=== PATIENT | male | born 1975 | race Hispanic/Latino ===

== ENCOUNTER 2024-01-25 00:11 | Emergency (ER) | payer OTHER ==
[~2024-01-25] VITALS: Ht 177.8 cm; Wt 118.4 kg
[2024-01-25] MEDS ORDERED: IBUP-2077 PO (00:26)
[2024-01-25] MEDS: KETOROLAC 15MG/ML VIAL (15MG/ML) IM STA (00:31)
[2024-01-25 00:47] VITALS: BP 138/83; PULSE 87; RESP 18; O2SAT 98
== END 2024-01-25 00:48 | disposition home or self-care (01) ==
LOC: EDH 00:11
DX: K02.9 Dental caries, unspecified (principal); I10 Essential (primary) hypertension; E11.9 Type 2 diabetes mellitus without complications; Z98.890 Other specified postprocedural states
CPT/HCPCS: 99283; 96372; J1885

== ENCOUNTER 2024-02-25 17:55 | Emergency (ER) | payer OTHER ==
[~2024-02-25] VITALS: Ht 177.8 cm; Wt 108.9 kg
[~2024-02-25 17:55] MED LIST: ACET-2079 PO; AEC81 PO; ATOR40TA69 PO; BACL10TA PO; CARB200T6 PO; IBUP-2077 PO; LEVO750T39 PO; LISI20TA24 PO; METF-446 PO
[2024-02-25 18:39] LABS: BASOPHILS # (AUTO) 0.07 K/uL (0.00-0.20); BASOPHILS % (AUTO) 1.2 % (0.0-5.0); EOSINOPHILS # (AUTO) 0.06 K/uL (0.00-0.70); EOSINOPHILS % (AUTO) 1.1 % (0.0-8.0); HEMATOCRIT 40.7 % (42-54); IMMATURE GRANULOCYTE ABSOLUTE 0.02 K/uL (0-1); LYMPHOCYTES # (AUTO) 1.7 K/uL (1.0-4.8); LYMPHOCYTES % (AUTO) 30.4 % (21.0-51.0); MEAN CORPUSCULAR HEMOGLOBIN 26.6 pg (27.0-33.0); MEAN CORPUSCULAR HGB CONC 32.2 g/dL (32.0-36.0); MEAN CORPUSCULAR VOLUME 82.7 fL (79-99); MONOCYTES # (AUTO) 0.5 K/uL (0.1-1.0); NEUTROPHILS # (AUTO) 3.3 K/uL (1.8-7.7); NEUTROPHILS % (AUTO) 58.9 % (40.0-77.0); PLATELET COUNT (AUTO) 353 K/uL (130-400); RED BLOOD CELL COUNT(AUTO) 4.92 MIL/uL (4.50-6.20); RED CELL DISTRIBUTION WIDTH 13.4 % (11.0-15.5); WHITE BLOOD COUNT (AUTO) 5.7 K/uL (4.8-10.8)
[2024-02-25 18:49] LABS: CREATININE 1.1 mg/dL (0.5-1.3)
[2024-02-25] MEDS: 0.9%NACL 1000ML 1,000 ML IV ONE (18:51)
[2024-02-25 18:58] LABS: ALBUMIN 3.5 g/dL (3.5-5.0); BILIRUBIN,TOTAL 0.3 mg/dL (0.2-1.0); MAGNESIUM 1.8 mg/dL (1.80-2.40); TOTAL PROTEIN, SERUM 7.2 g/dL (6.0-8.3)
[2024-02-25 19:01] LABS: B-TYPE NATRIURETIC PEPTIDE < 5 pg/mL (0-100)
[2024-02-25] MEDS: ONDANSETRON 4MG INJ IVP ONE (19:12)
[2024-02-25] MEDS: MORPHINE 4 MG SYG IVP ONE (19:12)
[2024-02-25] MEDS: INSULIN HUMULIN R 100 UNIT/ML 3ML IV ONE (19:15)
[2024-02-25 20:20] VITALS: BP 121/63; PULSE 82; RESP 18; O2SAT 99
== END 2024-02-25 20:50 | disposition home or self-care (01) ==
LOC: EDH 17:55
DX: G50.0 Trigeminal neuralgia (principal); R51.9 Headache, unspecified; R11.2 Nausea with vomiting, unspecified; E11.65 Type 2 diabetes mellitus with hyperglycemia; E86.0 Dehydration; I10 Essential (primary) hypertension; Z79.82 Long term (current) use of aspirin; Z79.899 Other long term (current) drug therapy; Z98.890 Other specified postprocedural states
CPT/HCPCS: 99285; 96374; 70450; 96375; 71045; 96361; 82550; 83735; 84484; 80053; 83880; 85025; 82948; 82010; 36415; 93005; J1815; J7030; J2405; J2270

== ENCOUNTER 2024-03-01 18:05 | Emergency (ER) | payer OTHER ==
[~2024-03-01] VITALS: Ht 177.8 cm; Wt 111.6 kg
[2024-03-01] MEDS: CYCLOBENZAPRINE HCL 10 MG TABLET PO ONE (18:41)
[2024-03-01] MEDS: 0.9%NACL 1000ML 1,000 ML IV ONE (18:41)
[2024-03-01] MEDS: ONDANSETRON 4MG INJ IVP ONE (18:42)
[2024-03-01] MEDS: METOCLOPRAMIDE 10 MG/2 ML VIAL IVP ONE (18:42)
[2024-03-01] MEDS: KETOROLAC 30MG VIAL (30MG/ML) IVP ONE (18:42)
[2024-03-01] MEDS: SOLU-MEDROL 125MG VIAL IVP ONE (18:42)
[2024-03-01 19:42] VITALS: BP 142/87; PULSE 92; RESP 20; O2SAT 98
[2024-03-01] MEDS ORDERED: BUTA-271 PO (19:46)
== END 2024-03-01 20:22 | disposition home or self-care (01) ==
LOC: EDH 18:05
DX: G44.209 Tension-type headache, unspecified, not intractable (principal); E11.9 Type 2 diabetes mellitus without complications; E78.00 Pure hypercholesterolemia, unspecified; I10 Essential (primary) hypertension; Z79.82 Long term (current) use of aspirin; Z79.84 Long term (current) use of oral hypoglycemic drugs; Z79.899 Other long term (current) drug therapy; Z95.1 Presence of aortocoronary bypass graft
CPT/HCPCS: 99284; 96374; 96375; 96361; J7030; J2919; J2405; J1885; J2765

== ENCOUNTER 2025-05-13 20:12 | Emergency (ER) | payer SELFPAY ==
[~2025-05-13] VITALS: Ht 157.5 cm; Wt 108.9 kg
[~2025-05-13 20:12] MED LIST changes: +BUTA-271 PO; +CARB-225 PO; -CARB200T6 PO; -LEVO750T39 PO; +LEVO750T90 PO
[2025-05-13 20:30] VITALS: BP 149/72; PULSE 100; RESP 20; TEMP 98.6; O2SAT 97
[2025-05-13 21:14] LABS: IMMATURE GRANULOCYTE ABSOLUTE 0.05 K/uL (0-1); NUCLEATED RED BLOOD CELLS 0.0 % (0.0-0.19); PLATELET COUNT (AUTO) 453 K/uL (130-400); RED BLOOD CELL COUNT(AUTO) 4.43 MIL/uL (4.50-6.20); RED CELL DISTRIBUTION WIDTH 13.2 % (11.0-15.5); WHITE BLOOD COUNT (AUTO) 9.4 K/uL (4.8-10.8)
[2025-05-13] MEDS: ORPHENADRINE 60MG/2ML IVP ONE (21:16)
[2025-05-13] MEDS: LACTATED RINGERS 1000ML IV STA ×2 (21:16→23:35)
[2025-05-13] MEDS: TRIAMCINOLONE ACETONIDE 40 MG/ML 1ML VIAL IM ONE (21:16)
[2025-05-13 21:32] LABS: CREATININE 0.7 mg/dL (0.5-1.3); GLOMERULAR FILTR. RATE CALC 114 mL/min (>90); GLUCOSE,RANDOM 178 mg/dL (70-105); SODIUM SERUM 142 mmol/L (136-145); UREA NITROGEN, BLOOD 19 mg/dL (7-18)
[2025-05-13 21:37] LABS: ASPARTATE AMINOTRANSFERASE 15 U/L (10-37); TOTAL PROTEIN, SERUM 7.0 g/dL (6.0-8.3)
[2025-05-13] MEDS: amLODIPine 5 MG TAB PO ONE (23:35)
--- NOTE | 2025-05-13 23:59 | ERN ---
General Chief Complaint: Headache Stated Complaint: HEADACHE, DIZZINESS Time Seen by MD: 20:36 Source: patient, family History of Present Illness Initial Comments 49-year-old male with a history of hypercholesterolemia hypertension and diabetes as well as a CABG comes in with a severe headache dizziness and right- sided face pain. He has been given gabapentin in the past because of a possible diagnosis of tic douloureux. He has an appointment with his doctor in the morning but he comes in today because the pain is just too bad. Allergies: Coded Allergies: No Known Allergies (Unverified Allergy, Unknown, 01/25/24) Home Meds Active Scripts Butalb/Acetaminophen/Caffeine (Esgic 50-325-40 mg Tablet) 50 Mg-325 Mg-40 Mg Tablet, 2 EACH PO Q4PRN for HEADACHE, #30 TAB TWO TABLETS BY MOUTH EVERY4 HOURS P.R.N. HEADACHE, MAXIMUM SIX TABLETS IN 24 HOURS. Prov:LOUISE KAUR INNER DIAMETER GRINDER TOOL 03/01/24 Levofloxacin (Levofloxacin) 750 Mg Tablet, 750 MG PO DAILY, #10 TAB Prov:ALFREDO FRAGA NETWORKING TECHNOLOGY INSTRUCTOR 02/11/24 Ibuprofen (Ibuprofen 800 mg Tab) 800 Mg Tab, 800 MG PO Q6H PRN for PAIN, #30 TAB Prov:WANDA GARCIA I PA 01/25/24 Reported Medications Carbamazepine (Carbamazepine) 200 Mg Tablet, 2 TAB PO BID 02/08/24 Acetaminophen with Codeine (Acetaminophen-Cod #3 Tablet) 300 Mg-30 Mg Tablet, 1 TAB PO BID PRN for pain 02/08/24 Baclofen (Baclofen) 10 Mg Tablet, 10 MG PO BID, TAB 02/07/24 Atorvastatin Calcium (LIPITOR) 40 Mg Tablet, 40 MG PO DAILY, TAB 02/07/24 Lisinopril (Lisinopril) 20 Mg Tablet, 20 MG PO DAILY, TAB 02/07/24 Aspirin (ASPIRIN 81 MG ECTAB) 81 Mg Ectab, 81 MG PO DAILY, TAB.EC 02/07/24 Metformin HCl (Metformin HCl) 1,000 Mg Tablet, 1000 MG PO BID, TAB 02/07/24 Past Medical History Past Medical History: Diabetes-Type II, High Cholesterol, Hypertension, [place], Migraines Medical History Other: SLEEP APNEA, TRIGEMINAL NEURALGIA Past Surgical History: CABG, Other Surgical History Other: DOUBLE BYPASS SURGERY Social History Social History: Drugs Constitutional: (-) chills, (-) diaphoresis, (-) fever, (-) malaise, (-) weakness, (-) other documentation EENTM: (-) eye pain, (-) blurred vision, (-) tearing, (-) double vision, (-) ear pain, (-) ear discharge, (-) nose pain, (-) nose congestion, (-) throat pain, (-) Throat swelling, (-) mouth pain, (-) tooth pain, (-) mouth swelling, (-) other documentation Respiratory: (-) cough, (-) orthopnea, (-) short of breath, (-) stridor, (-) wheezing, (-) other documentation Cardiovascular: (-) chest pain, (-) edema, (-) palpitations, (-) syncope, (-) dyspnea on exertion, (-) other documentation Gastrointestinal/Abdominal: (-) nausea, (-) vomiting, (-) diarrhea, (-) abdominal pain, (-) abdominal distention, (-) constipation, (-) rectal bleeding, (-) dark stool/melena, (-) other documentation Musculoskeletal: (+) Neck pain Neuro: (+) headache, (+) dizziness Physical Exam General Appearance: (+) moderate distress Orientation: (+) alert, (+) oriented x 3 Head/Face Trauma: No Eye: bilateral eye normal inspection, bilateral eye PERRL, bilateral eye EOMI Ear, Nose, Throat: (+) hearing grossly normal, (+) normal ENT inspection, (+) moist mucous membraine Neck: (+) normal inspection, (+) supple, (+) full range of motion, (+) no JVD Respiratory: (+) chest non-tender, (+) lungs clear, (+) well ventilated Heart: (+) regular, (+) no gallop, (+) tachycardia Vascular: (+) no edema, (+) normal peripheral pulse Gastrointestinal: (+) soft, (+) non-tender, (+) bowel sound present Results Laboratory and Microbiology Lab and Micro Result Laboratory Tests Test 05/13/25 20:51 White Blood Count 9.4 K/uL (4.8-10.8) Red Blood Count 4.43 MIL/uL (4.50-6.20) L Hemoglobin 12.6 g/dL (14.0-18.0) L Hematocrit 39.6 % (42-54) L Mean Corpuscular Volume 89.4 fL (79-99) Mean Corpuscular Hemoglobin 28.4 pg (27.0-33.0) Mean Corpuscular Hemoglobin Concent 31.8 g/dL (32.0-36.0) L Red Cell Distribution Width 13.2 % (11.0-15.5) Platelet Count 453 K/uL (130-400) H Mean Platelet Volume 9.2 fL (7.5-10.5) Immature Granulocyte % (Auto) 0.5 % (0-1) Neutrophils (%) (Auto) 61.8 % (40.0-77.0) Lymphocytes (%) (Auto) 25.8 % (21.0-51.0) Monocytes (%) (Auto) 7.4 % (3.0-13.0) Eosinophils (%) (Auto) 3.8 % (0.0-8.0) Basophils (%) (Auto) 0.7 % (0.0-5.0) Neutrophils # (Auto) 5.8 K/uL (1.8-7.7) Lymphocytes # (Auto) 2.4 K/uL (1.0-4.8) Monocytes # (Auto) 0.7 K/uL (0.1-1.0) Eosinophils # (Auto) 0.36 K/uL (0.00-0.70) Basophils # (Auto) 0.07 K/uL (0.00-0.20) Absolute Immature Granulocyte (auto 0.05 K/uL (0-1) Nucleated Red Blood Cells 0.0 % (0.0-0.19) Sodium Level 142 mmol/L (136-145) Potassium Level 3.9 mmol/L (3.5-5.1) Chloride Level 104 mmol/L (101-111) Carbon Dioxide Level 30 mmol/L (21-32) Blood Urea Nitrogen 19 mg/dL (7-18) H Creatinine 0.7 mg/dL (0.5-1.3) Glomerular Filtration Rate Calc 114 mL/min (>90) Random Glucose 178 mg/dL (70-105) H Lactic Acid Level 1.4 mmol/L (0.8-2.5) Total Calcium 8.7 mg/dL (8.5-10.1) Total Bilirubin < 0.1 mg/dL (0.2-1.0) L Aspartate Amino Transf (AST/SGOT) 15 U/L (10-37) Alanine Aminotransferase (ALT/SGPT) 30 U/L (12-78) Alkaline Phosphatase 109 U/L (50-136) Troponin I High Sensitivity 5 ng/L (4-75) B-Type Natriuretic Peptide 9 pg/mL (0-100) Total Protein 7.0 g/dL (6.0-8.3) Albumin 3.2 g/dL (3.5-5.0) L MDM MDM: Differential diagnosis: Trigeminal neuralgia, dehydration, migraine, tension headache, hypertensive emergency, Rationale: Tests considered and ordered secondary to shared decision making include: Previous outside records reviewed: Old ER visits. Risk of complication and/or morbidity or mortality of patient management: None Medications-Per medication reconciliation Need for hospitalization: Patient does meet criteria for hospitalization. Need for emergency major/minor surgery: No There are no social concerns with this patient. Prescription drug management Prescriptions will include symptomatic care Patient's prior external medical records from other ER visits were reviewed by me as indicated. Prior testing and results from previous visits were reviewed. Prior tests were taken into account with medical decision making and resource utilization, independent historian/historians were used to obtain complete medical history. I independently interpreted the test that were performed, results were reviewed by me and considered findings on radiology if ordered. Patient's workup shows a mild anemia. Possible signs of dehydration with a an elevated BUN. I gave the patient 2 L of fluid, a muscle relaxant and also an oral dorsal Tegretol for his tic douloureux. Patient says he feels much better and would like to go home. ED Course Orders Procedure Category Date Status Time 12 Lead Ekg Tracing- EKG 05/13/25 Logged Technical 20:41 B-Type Natriuretic LAB 05/13/25 Complete Peptide 20:41 Comprehensive LAB 05/13/25 Complete Metabolic Panel 20:41 Cbc With Differential LAB 05/13/25 Complete 20:41 Lactic Acid LAB 05/13/25 Complete 20:41 Troponin I High LAB 05/13/25 Complete Sensitivity 20:41 Urinalysis Profile LAB 05/13/25 Logged 20:41 Lactated Ringers PHA 05/13/25 Complete 1000ml (Lactated 20:41 Orphenadrine Citrate PHA 05/13/25 Complete (Norflex) 21:00 Ketorolac PHA 05/13/25 Complete Tromethamine 30mg/Ml 21:00 Triamcinolone Acet PHA 05/13/25 Complete 40mg/Ml 1ml (Kenalog 21:00 Lactated Ringers PHA 05/13/25 Complete 1000ml (Lactated 23:11 Carbamazepine 200 Mg PHA 05/13/25 Complete (Carbamazepine 200 23:30 Amlodipine 5 Mg Tab PHA 05/13/25 Complete (Norvasc 5mg Tab) 23:30 Current Medications Medications (Trade) Dose Ordered Sig/Sergio Route PRN Reason Start Time Stop Time Status Last Admin Dose Admin Amlodipine Besylate (NorvASC 5MG TAB) 5 mg ONCE ONCE PO 05/13/25 23:30 05/13/25 23:31 DC 05/13/25 23:35 Carbamazepine (carBAMazepine 200 mg tablet) 200 mg ONCE ONCE PO 05/13/25 23:30 05/13/25 23:31 DC 05/13/25 23:35 Ketorolac Tromethamine (toRADol) 30 mg ONCE ONCE IVP 05/13/25 21:00 05/13/25 21:01 DC 05/13/25 21:16 Lactated Ringer's (Lactated Ringers 1000ml) 1,000 ml BOLUS STAT IV 05/13/25 20:41 05/13/25 20:44 DC 05/13/25 21:16 Lactated Ringer's (Lactated Ringers 1000ml) 1,000 ml BOLUS STAT IV 05/13/25 23:11 05/13/25 23:15 DC 05/13/25 23:35 Orphenadrine Citrate (Norflex) 60 mg ONCE ONCE IVP 05/13/25 21:00 05/13/25 21:01 DC 05/13/25 21:16 Triamcinolone Acetonide (Kenalog 40) 40 mg ONCE ONCE IM 05/13/25 21:00 05/13/25 21:01 DC 05/13/25 21:16 Vital Signs Date Time Temp Pulse Resp B/P (MAP) Pulse Ox O2 Delivery O2 Flow Rate FiO2 05/13/25 20:30 98.6 100 20 149/72 97 Room Air* 0 21 05/13/25 20:14 97.9 100 20 146/109 95 Room Air DX & DISP Disposition: Discharge Departure Impression: Primary Impression: Trigeminal neuralgia Additional Impression: Dehydration Condition: Stable Additional Instructions: You came in with a severe headache and hypertension. I treated you with fluids Tegretol and an antihypertensive medication. Your symptoms have abated please keep your appointment with your physician in the morning. You may have a trigeminal neuralgia and I have given you some Tegretol to help treat that. There was debate in the literature whether Tegretol or gabapentin is the best medication for trigeminal neuralgia. It depends on how you feel when you are taking each of those meds and their side effects. Referrals: ADRIA STARKEY (PCP) LEE PARRISH MD May 13, 2025 23:59
--- NOTE | 2025-05-14 06:25 | EKG ---
[facility] Test Date: 2025-05-13 Test Time: 20:57:06 Pat Name: ANDREW FULTON Department: ED Room: Gender: M Capacity Manager: [id number] : 1975 Requested By: LEE PARRISH Order Number: [id number] Reading MD: Beatrice Ochoa Measurements Intervals [place] Rate: 93 P: 15 VT: 188 QRS: 94 QRSD: 100 T: 64 QT: 360 QTc: 447 Interpretive Statements Sinus rhythm Inferior infarct, old Compared to ECG 02/25/2024 18:55:28 Myocardial infarct finding now present Right-axis deviation no longer present Electronically Signed On 05-15-2025 16:11:06 CDT by Beatrice Ochoa Please click the below link to view image of tracing.
== END 2025-05-14 00:52 | disposition home or self-care (01) ==
LOC: EDH 20:12
DX: G50.0 Trigeminal neuralgia (principal); E86.0 Dehydration; E11.9 Type 2 diabetes mellitus without complications; E78.00 Pure hypercholesterolemia, unspecified; G47.30 Sleep apnea, unspecified; I10 Essential (primary) hypertension; I25.2 Old myocardial infarction; Z79.82 Long term (current) use of aspirin; Z79.84 Long term (current) use of oral hypoglycemic drugs; Z79.899 Other long term (current) drug therapy; Z95.1 Presence of aortocoronary bypass graft
CPT/HCPCS: 99284; 96374; 96361; 96375; 84484; 80053; 83880; 85025; 83605; 36415; 93005; 96372; J1885; J7120 ×2; J3301; J2360

== ENCOUNTER 2025-08-07 18:04 | Emergency (ER) | payer SELFPAY ==
[~2025-08-07] VITALS: Ht 175.3 cm; Wt 117.9 kg
--- NOTE | 2025-08-07 18:09 | ERN ---
ED Note History of Present Illness Stated Complaint: FLULIKE SYMPTOMS Chief Complaint: Flu Symptoms Time Seen by MD: 18:06 Dictation: PATIENT IS A 50-YEAR-OLD MALE COMING IN TODAY WITH FLU-LIKE SYMPTOMS TO INCLUDE CLEAR RUNNY NOSE, SORE THROAT WITH PAINFUL SWALLOWING DRY COUGH AND BODY ACHES FOR THE LAST TWO DAYS. HE DENIES NAUSEA VOMITING LOSS OF TASTE OR SMELL. NO CHANGE IN URINATION. STATES HE JUST GOT IN TOWN FROM TRAVELING [facility] AND HAD NO KNOWN SICK ASSOCIATES. HAS BEEN TAKING NYQUIL [id number]. Allergies: Coded Allergies: No Known Allergies (Unverified Allergy, Unknown, 01/25/24) Home Meds Active Scripts Butalb/Acetaminophen/Caffeine (Esgic 50-325-40 mg Tablet) 50 Mg-325 Mg-40 Mg Tablet, 2 EACH PO Q4PRN for HEADACHE, #30 TAB TWO TABLETS BY MOUTH EVERY4 HOURS P.R.N. HEADACHE, MAXIMUM SIX TABLETS IN 24 HOURS. Prov:LOUISE KAUR YOUTH CAREER SPECIALIST 03/01/24 Levofloxacin (Levofloxacin) 750 Mg Tablet, 750 MG PO DAILY, #10 TAB Prov:ALFREDO FRAGA YOUTH CAREER SPECIALIST 02/11/24 Ibuprofen (Ibuprofen 800 mg Tab) 800 Mg Tab, 800 MG PO Q6H PRN for PAIN, #30 TAB Prov:WANDA GARCIA I PAC 01/25/24 Reported Medications Carbamazepine (Carbamazepine) 200 Mg Tablet, 2 TAB PO BID 02/08/24 Acetaminophen with Codeine (Acetaminophen-Cod #3 Tablet) 300 Mg-30 Mg Tablet, 1 TAB PO BID PRN for pain 02/08/24 Baclofen (Baclofen) 10 Mg Tablet, 10 MG PO BID, TAB 02/07/24 Atorvastatin Calcium (LIPITOR) 40 Mg Tablet, 40 MG PO DAILY, TAB 02/07/24 Lisinopril (Lisinopril) 20 Mg Tablet, 20 MG PO DAILY, TAB 02/07/24 Aspirin (ASPIRIN 81 MG ECTAB) 81 Mg Ectab, 81 MG PO DAILY, TAB.EC 02/07/24 Metformin HCl (Metformin HCl) 1,000 Mg Tablet, 1000 MG PO BID, TAB 02/07/24 Past Medical History Past Medical History: Diabetes-Type II, High Cholesterol, Hypertension, [place], Migraines Additional Past Medical Hx: SLEEP APNEA, TRIGEMINAL NEURALGIA Surgical History: CABG, Other Surgical History Other: DOUBLE BYPASS SURGERY Social History: Drugs RN Note Reviewed/Agreed w/PFSH: Yes Review of System Dictation CONSTITUTIONAL: NEGATIVE EXCEPT FOR HPI FEVER CHILLS HEAD/FACE: NEGATIVE EXCEPT FOR HPI EENT: NEGATIVE EXCEPT FOR HPI CLEAR RHINITIS WITH A SORE THROAT RESPIRATORY: NEGATIVE EXCEPT FOR HPI DRY COUGH GASTROINTESTINAL/ABDOMINAL: NEGATIVE EXCEPT FOR HPI GENITOURINARY: NEGATIVE EXCEPT FOR HPI MUSCULOSKELETAL: NEGATIVE EXCEPT FOR HPI INTEGUMENTARY: NEGATIVE EXCEPT FOR HPI NEUROLOGICAL/PSYCH: NEGATIVE EXCEPT FOR HPI HEMATOLOGIC/LYMPHATIC: NEGATIVE EXCEPT FOR HPI ALL SYSTEMS NEGATIVE, EXCEPT NOTED ABOVE. 13 POINT REVIEW OF SYSTEMS ASSESSED AND ALL NEGATIVE EXCEPT FOR ABOVE. Initial Vital Sign VS Vital Signs Date Time Temp Pulse Resp B/P (MAP) Pulse Ox O2 Delivery O2 Flow Rate FiO2 08/07/25 18:05 99.0 95 20 144/99 97 Room Air 08/07/25 18:40 0 21 Physical Exam Dictation VITAL SIGNS REVIEWED GENERAL APPEARANCE: ALERT, ORIENTED X 3, MODERATE ACUTE DISTRESS, WELL DEVELOPED, NOURISHED. HEAD AND FACE: NON-TRAUMATIC. EYES: PERRL, PINK CONJUNCTIVAS, EYELID NO TRAUMA, ANTERIOR CHAMBER WITH ARCUS SENILIS. EARS: PINNAS INTACT AND NO SIGNS OF TRAUMA OR ERYTHEMA EAR CANALS CLEAR AND NO DISCHARGE TM NO ERYTHEMA NOSE: CLEAR DISCHARGE, NO BLEEDING. OROPHARYNX: MOUTH NORMAL, TONGUE PINK, PHARYNX CLEAR, MODERATE PHARYNGEAL RYTHEMA, TONSILS NO EXUDATES, NO ABSCESSES NOTED, MUCOUS MEMBRANE MOIST UVULA MIDLINE, VOICE IS CLEAR NECK: SUPPLE, NON-TENDER, NO THYROMEGALY, NO MASSES, NO JVD, NO BRUITS BREAST:DEFERRED CHEST:NO TENDERNESS, NO CREPITUS, NO PARADOXICAL MOVEMENT, NO RETRACTIONS LUNGS:CLEAR, WELL-VENTILATED, SYMMETRIC, NO RALES, NO WHEEZING, NO RHONCHI, NO STRIDOR, GOOD BREATH SOUNDS BILATERALLY INTERMITTENT DRY COUGH NOTED NO TACHYPNEA NO RETRACTIONS HEART: REGULAR RATE, REGULAR RHYTHM, NO MURMUR, NO GALLOPS VASCULAR: NO PERIPHERAL EDEMA, ABDOMEN: SOFT, POSITIVE BOWEL SOUNDS, NONDISTENDED, NO GUARDING, NONTENDER, NO REBOUND, NO MASSES NO HEPATOMEGALY, NO SPLENOMEGALY, NO BORGES'S SIGN, NO HERNIAS. RECTAL: DEFERRED GENITAL: DEFERRED NEUROLOGICAL: NORMAL SPEECH, MOTOR FUNCTION INTACT, SENSORY FUNCTION INTACT MUSCULOSKELETAL: NECK NONTENDER, FULL RANGE OF MOTION, BACK NONTENDER, FULL RANGE OF MOTION, EXTREMITIES: NONTENDER, FULL RANGE OF MOTION SKIN: COLOR PINK, DRY, NO TURGOR, NO RASH, NO LACERATIONS, NO ABRASIONS, NO CONTUSIONS. LYMPHATIC: DEFERRED Results (Laboratory/Radiology) Laboratory/Radiology Laboratory Tests Test 08/07/25 18:42 08/07/25 19:00 Influenza Type A Antigen Negative For Type A Influenza Type B Antigen Negative For Type B SARS-CoV-2 Antigen (Rapid) PRESUMPTIVE NEGATIVE Group A Streptococcus Rapid negative (NEGATIVE) Labs Reviewed?: Yes ED Course ED Course Orders Procedure Category Date Status Time Covid19 (Sars Antigen LAB 08/07/25 Complete Rapid) 18:06 Influenza Type A & B, LAB 08/07/25 Complete Rapid 18:06 Ibuprofen 800 Mg Tab PHA 08/07/25 Complete (Motrin) 18:30 Rapid (Group A Strep) LAB 08/07/25 Complete 18:06 Current Medications Medications (Trade) Dose Ordered Sig/Sergio Route PRN Reason Start Time Stop Time Status Last Admin Dose Admin Ibuprofen (moTRIN) 800 mg ONCE ONCE PO 08/07/25 18:30 08/07/25 18:31 DC 08/07/25 18:47 Vital Signs Date Time Temp Pulse Resp B/P (MAP) Pulse Ox O2 Delivery O2 Flow Rate FiO2 08/07/25 18:40 98.6 89 20 139/99 95 Room Air* 0 21 08/07/25 18:05 99.0 95 20 144/99 97 Room Air 1940/PATIENT IS AWARE THAT HIS LABS ARE ALL COMPLETELY NEGATIVE. HE WILL BE TREATED EMPIRICALLY WITH AZITHROMYCIN FOR ACUTE PHARYNGITIS UNSPECIFIED TOLD SEE HIS PRIMARY CARE Medical Decision Making MDM MEDICAL DISCHARGE MAKING BASED ON SWABS FOR FLU COVID AND STREP . SWABS ARE NEGATIVE PATIENT WILL BE PRESCRIBED AZITHROMYCIN FOR ACUTE PHARYNGITIS UNSPECIFIED BEING TREATED EMPIRICALLY REFERRED TO HIS PRIMARY CARE DOCTOR DX & DISP Disposition: Discharge Departure Impression: Primary Impression: Acute pharyngitis, unspecified Condition: Stable Scripts Azithromycin (Zithromax Tri-Kayden) 500 Mg Tablet 500 MG PO DAILY for 5 Days, #5 TAB Prov: LOUISE KAUR YOUTH CAREER SPECIALIST 08/07/25 Additional Instructions: Follow-up with primary care provider in 1 to 2 days. Take medications as directed here in the emergency room. Okay to continue home medications unless otherwise discussed during your visit in the emergency room today. Return to your nearest emergency room if symptoms worsen or if there is no improvement. Call 911 if you need immediate assistance. Take Tylenol or Motrin [id number] as needed and if no contraindications are present. Increase oral hydration. A wound culture or urine culture was ordered here in the emergency room department please follow-up with primary care provider and advise them to get repeat ports from our facility. If you had any Eduardo wrap/splints that were applied here, please do not remove them until you see your primary care or specialty. Take azithromycin as directed until gone. Take Tylenol 1000 mg/[id number] every 6 hours as needed for fever pain. Increase your water intake. See your primary care doctor for follow up Referrals: ADRIA STARKEY (PCP) Time of Disposition: 19:43 I have reviewed the case, and I agree with, Diagnosis and Plan LOUISE KAUR Aug 07, 2025 18:09
--- NOTE | 2025-08-07 18:40 | NUR ---
ASSUMED CARE OF PATIENT AT THIS TIME.
[2025-08-07 19:09] LABS: INFLUENZA TYPE A Negative For Type A (NEGATIVE); INFLUENZA TYPE B Negative For Type B (NEGATIVE)
[2025-08-07 19:10] LABS: COVID19 (SARS ANTIGEN RAPID) PRESUMPTIVE NEGATIVE (NEGATIVE)
--- NOTE | 2025-08-07 19:10 | NUR ---
REPORT GIVEN TO Marti AVILES RN FOR CONTINUITY OF PATIENT CARE.
[2025-08-07] MEDS ORDERED: AZIT500T2 PO (19:44)
[2025-08-07 20:10] VITALS: BP 142/90; PULSE 90; RESP 18; TEMP 98.3; O2SAT 98
== END 2025-08-07 20:11 | disposition home or self-care (01) ==
LOC: EDH 18:04
DX: J02.9 Acute pharyngitis, unspecified (principal); I10 Essential (primary) hypertension; E11.9 Type 2 diabetes mellitus without complications; E78.00 Pure hypercholesterolemia, unspecified; I25.2 Old myocardial infarction; G43.909 Migraine, unspecified, not intractable, without status migrainosus; Z79.899 Other long term (current) drug therapy; Z79.84 Long term (current) use of oral hypoglycemic drugs; Z79.82 Long term (current) use of aspirin; Z95.1 Presence of aortocoronary bypass graft; Z20.822 Contact with and (suspected) exposure to COVID-19
CPT/HCPCS: 87426; 87804; 87880; 99283